=== PATIENT | male | born 1970 ===

== ENCOUNTER 2025-04-07 18:04 | Emergency (ER) | payer BC ==
[~2025-04-07] VITALS: Ht 167.6 cm; Wt 79.4 kg
[2025-04-07 18:10] VITALS: BP 144/94
[2025-04-07] MEDS ORDERED: TETRACAINE HCL 0.5% OPHT DROP 2 ML BOTTLE ONE (19:07)
[2025-04-07] MEDS ORDERED: FLUORESCEIN SODIUM 1 MG STRIP ONE (19:08)
[2025-04-07] MEDS: TETRACAINE HCL 0.5% OPHT DROP 2 ML BOTTLE OP ONE (19:10)
[2025-04-07] MEDS: FLUORESCEIN SODIUM 1 MG STRIP OP ONE (19:10)
[2025-04-07 20:39] VITALS: BP 136/89; O2SAT 99
== END 2025-04-07 20:41 | disposition home or self-care (01) ==
LOC: ER 18:11
DX: H43.391 Other vitreous opacities, right eye (principal); I11.9 Hypertensive heart disease without heart failure; H40.9 Unspecified glaucoma; E78.5 Hyperlipidemia, unspecified; E03.9 Hypothyroidism, unspecified
CPT/HCPCS: A4606; A4663